=== PATIENT | female | born 1950 | race African-American/Black ===

== ENCOUNTER 2017-09-05 22:12 | Emergency (ER) | payer SELFPAY ==
[~2017-09-05] VITALS: Ht 167.6 cm; Wt 94.0 kg
[2017-09-06 03:30] VITALS: BP 151/50
== END 2017-09-06 03:45 | disposition home or self-care (01) ==
LOC: ER 22:12
DX: S40.862A Insect bite (nonvenomous) of left upper arm, initial encounter (principal); S40.861A Insect bite (nonvenomous) of right upper arm, initial encounter; E11.9 Type 2 diabetes mellitus without complications; W57.XXXA Bitten or stung by nonvenomous insect and other nonvenomous arthropods, initial encounter; Y93.9 Activity, unspecified; Y92.9 Unspecified place or not applicable
CPT/HCPCS: 99283